=== PATIENT | female | born 1955 | race African-American/Black ===

== ENCOUNTER 2020-05-28 11:52 | Emergency (ER) | payer MEDICAID ==
[~2020-05-28] VITALS: Ht 167.6 cm; Wt 79.0 kg
[2020-05-28] MEDS ORDERED: ACETAMINOPHEN 325MG TABLET PO ONE (13:15)
[2020-05-28 13:24] VITALS: BP 152/78
== END 2020-05-28 13:25 | disposition home or self-care (01) ==
LOC: ER 11:52
DX: L02.414 Cutaneous abscess of left upper limb (principal); L02.413 Cutaneous abscess of right upper limb; L02.211 Cutaneous abscess of abdominal wall; F11.188 Opioid abuse with other opioid-induced disorder; I10 Essential (primary) hypertension; I20.9 Angina pectoris, unspecified; Z90.710 Acquired absence of both cervix and uterus
CPT/HCPCS: 99282; 99283